=== PATIENT | male | born 1955 | race Caucasian/White ===

== ENCOUNTER 2021-01-25 22:32 | Emergency (ER) | payer OTHER ==
[~2021-01-25] VITALS: Ht 182.9 cm; Wt 104.3 kg
[~2021-01-25 22:32] MED LIST: BACTRIM DS TAB1 EACH PO; DOXYCYCLINE 10100 MG PO; KEFLEX500 MG PO; NOHOMEMEDICATIONS; NORCO 5-325 TA1 EACH PO
[2021-01-25] MEDS ORDERED: LIPITOR40 MG PO (22:42)
[2021-01-25] MEDS ORDERED: LISINOPRIL10 MG PO (22:42)
[2021-01-25] MEDS ORDERED: OMEPRAZOLE40 MG PO (22:42)
[2021-01-25] MEDS ORDERED: ERYTHROMYCIN E3.5 G3 OPHTHALMIC (23:38)
[2021-01-25 23:58] VITALS: BP 119/82
== END 2021-01-25 23:58 | disposition home or self-care (01) ==
LOC: M.ERS 22:32
DX: S05.02XA Injury of conjunctiva and corneal abrasion without foreign body, left eye, initial encounter (principal); Z86.14 Personal history of Methicillin resistant Staphylococcus aureus infection; Z88.0 Allergy status to penicillin; X58.XXXA Exposure to other specified factors, initial encounter; Y93.89 Activity, other specified; Y92.89 Other specified places as the place of occurrence of the external cause; Y99.8 Other external cause status

== ENCOUNTER 2021-06-23 09:11 | Emergency (ER) | payer OTHER ==
[~2021-06-23] VITALS: Ht 182.9 cm; Wt 99.8 kg
[~2021-06-23 09:11] MED LIST changes: +ERYTHROMYCIN E3.5 G3 OPHTHALMIC; +LIPITOR40 MG PO; +LISINOPRIL10 MG PO; +OMEPRAZOLE40 MG PO
[2021-06-23] MEDS ORDERED: TESSALON PERLE100 M1 PO (10:41)
[2021-06-23 10:53] VITALS: BP 134/96
== END 2021-06-23 10:54 | disposition home or self-care (01) ==
LOC: M.ERS 09:11
DX: B34.9 Viral infection, unspecified (principal); Z20.822 Contact with and (suspected) exposure to COVID-19